=== PATIENT | male | born 1955 | race Caucasian/White ===

== ENCOUNTER → 2018-09-21 | Outpatient (CLI) | payer OTHER ==
[2018-09-21 11:41] LABS: HCT 55.8 % (39.0-53.0); HGB 18.2 gm/dL (13.0-17.5); MCH 31.5 pg (25.0-35.0); MCHC 32.7 g/dL (31.0-37.0); MCV 96.3 fL (80.0-100.0); Mean Platelet Volume 7.2; Platelet Count 205 k/uL (150-450); RDW 13.6 % (11.5-15.5); WBC 12.1 k/uL (3.8-10.6)
[2018-09-21 16:41] LABS: Anion Gap 7.6 mmol/L (4.00-12.00); Carbon Dioxide 29.4 mmol/L (21.6-31.8); Potassium 4.9 mmol/L (3.5-5.5)
== END | disposition home or self-care (01) ==
LOC: LABWHC1 09:52
PROVIDERS: ATTEND Internal Medicine Cardiovascular Disease
DX: E03.9 Hypothyroidism, unspecified (principal); I48.1 Persistent atrial fibrillation
CPT/HCPCS: 36415; 80051; 82565; 84443; 84520; 85027

== ENCOUNTER → 2018-10-01 | Outpatient (CLI) | payer OTHER | END | disposition home or self-care (01) | LOC: LABWHC1 15:43 | PROVIDERS: ATTEND Orthopaedic Surgery | DX: Z01.812 Encounter for preprocedural laboratory examination (principal) | CPT/HCPCS: 87070 ==

== ENCOUNTER 2018-10-02 12:45 | Day surgery (SDC) | payer OTHER ==
--- NOTE | 2018-10-01 12:34 | HP ---
HISTORY AND PHYSICAL CHIEF COMPLAINT: Right knee pain. 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 He notes locking and giving way. He has been unable to work because of pain. He is currently using a walker. PAST MEDICAL HISTORY: Significant for arthritis and heart disease. PAST SURGICAL HISTORY: Significant for previous shoulder surgery. CURRENT MEDICATIONS: 1. Aleve. 2. Prilosec. 3. Eliquis. FAMILY HISTORY: Significant for cancer. SOCIAL HISTORY: Negative for current tobacco or alcohol use. REVIEW OF SYSTEMS: A 16-point review of systems otherwise reviewed and is noncontributory. PHYSICAL EXAMINATION: On examination, the patient is approximately 5 foot 6, 230 pounds of endomorphic habitus. HEENT exam is nonfocal. Neck is supple. He has painless passive motion of the right hip. Straight leg raise is negative. Active motion right knee -15 to 100 degrees of flexion. He has a mild effusion. He is tender about the medial joint line. Collaterals are stable, Ina is negative, Misael's is equivocal. He has genu varum alignment. His distal neurovascular appears intact in the right lower extremity. Previous x-rays of the right knee obtained in the office show severe medial and patellofemoral compartment narrowing. IMPRESSION: 1. Right knee severe medial and patellofemoral compartment osteoarthrosis. 2. New onset atrial fibrillation. RECOMMENDATIONS: I talked to the patient at length regarding his condition and treatment options. At this point, he is quite limited because of pain related to his osteoarthrosis. After thorough discussion, he opts to proceed with surgery. We will plan to proceed with right total knee arthroplasty. We will likely reinstitute his Eliquis postoperatively. He underwent preoperative cardiac evaluation by Dr. Do. MMODL / IJN: [id number] /
[~2018-10-02 12:45] MED LIST: ACETAMINOPHEN TAB 500 MG TAB PO ONE; DEXAMETHASONE SOD PHOSPHATE 10 MG/ML 1 ML VIAL IV ONE; HYDROmorphone 0.5 MG/0.5 ML SYRINGE IVP PRN; LIDOCAINE 1% 20 ML VIAL (10MG/ML) FOR IV START INTRADERMA PRN; MELOXICAM 7.5 MG TAB PO ONE; MIDAZOLAM 2 MG/2 ML VIAL IV PRN; ONDANSETRON 4 MG/2 ML VIAL IVP ONE; SCOPOLAMINE 1.5MG/72HR PATCH TRANSDERM ONE; TRANEXAMIC ACID 1,000 MG in SODIUM CHLORIDE 0.9% 100 ML IVPB ONE; ceFAZolin IN SWFI 2 GM/20 ML SYRINGE IVP ONE
[2018-10-02] MEDS: LACTATED RINGERS 1,000 ML IV SCH (13:54)
[2018-10-02] MEDS ORDERED: ROPIVACAINE 246.25 MG, EPINEPHrine 0.5 MG, KETOROLAC 30 MG, WATER FOR INJECTION,STERILE... MISCELLANE ONE ×4 (15:03)
[2018-10-02] MEDS ORDERED: LABETALOL 5 MG/ML VIAL MDV ONE (15:59)
[2018-10-02] MEDS ORDERED: TRANEXAMIC ACID 1,000 MG/10 ML VIAL ONE (15:59)
[2018-10-02] MEDS ORDERED: MIDAZOLAM 2 MG/2 ML VIAL ONE (15:59)
[2018-10-02] MEDS ORDERED: HYDROmorphone (PF) 1 MG/ML ONE (15:59)
[2018-10-02] MEDS ORDERED: SUCCINYLCHOLINE CHLORIDE 100 MG/5 ML SYR IV ONE (15:59)
[2018-10-02] MEDS ORDERED: fentaNYL (PF) 50 MCG/ML 2 ML AMP ONE (15:59)
[2018-10-02] MEDS ORDERED: PROPOFOL 10 MG/ML 20 ML VIAL IV ONE (15:59)
[2018-10-02] MEDS ORDERED: SODIUM CHLORIDE 0.9% 100 ML BAG ONE (15:59)
[2018-10-02] MEDS ORDERED: LIDOCAINE 1% INJ 10MG/ML (20 ML MDV) ONE (15:59)
[2018-10-02] MEDS ORDERED: NALOXONE 0.4 MG/ML 1 ML VIAL IV PRN (16:02)
[2018-10-02] MEDS ORDERED: traMADol 50 MG TAB PO PRN (16:02)
[2018-10-02] MEDS ORDERED: HYDROcodone/APAP 7.5-325MG 1 EACH TAB PO PRN ×2 (16:02→16:04)
[2018-10-02] MEDS ORDERED: MAGNESIUM HYDROXIDE 2,400 MG/10 ML CUP PO PRN (16:02)
[2018-10-02] MEDS ORDERED: HYDROmorphone 0.5 MG/0.5 ML SYRINGE IVP PRN (16:02)
[2018-10-02] MEDS ORDERED: ONDANSETRON 4 MG/2 ML VIAL IVP PRN (16:02)
[2018-10-02] MEDS ORDERED: ACETAMINOPHEN TAB 325 MG TAB PO PRN (16:02)
[2018-10-02] MEDS ORDERED: ceFAZolin 3,000 MG in SODIUM CHLORIDE 0.9% IRRIGATIO 3,000 ML IRRIGATION ONE (16:35)
[2018-10-02] MEDS ORDERED: LACTATED RINGERS 1,000 ML IV ONE (16:51)
--- NOTE | 2018-10-02 18:03 | P.OP ---
Date of Procedure: 10/02/18 Preoperative Diagnosis: Right knee severe tricompartmental osteoarthrosis Postoperative Diagnosis: Same Procedure(s) Performed: Right total knee arthroplastycementedcruciate retaining Implants: Depuy Attune size 7 cemented femoral component, size 6 cemented tibial component, 10 mm articular surface, 38 mm cemented patellar component. This is a cruciate retaining implant. Anesthesia: GETA, local Surgeon: Napoleon Bunch [employer]1: Jason Richey Estimated Blood Loss (ml): 50 Pathology: other (Bone fragments) Condition: stable Disposition: PACU Indications for Procedure: The patient's a 62-year-old male who presents with progressive right knee pain secondary to osteoarthrosis despite conservative measures. A discussion of the risks and benefits of continued conservative measures versus operative intervention was made with patient. He opted to proceed with surgery. Operative risks to include infection, neurovascular injury, development of blood clots, possible fracture, possible component loosening, possible component failure need for subsequent procedures was discussed. Informed consent was obtained. Operative Findings: As below Description of Procedure: The patient was brought to the operating room, and after induction of general anesthesia the right lower extremity was prepped and draped in a normal fashion. The tourniquet was inflated to 270 mmHg. A longitudinal incision extending 3 finger breaths above the superior pole of the patella extending to the medial aspect the tibial tubercle was then made. The skin and subcutaneous tissues were divided sharply. Electrocautery was used for hemostasis. A medial parapatellar arthrotomy was then performed. The medial soft tissues to include the superficial and deep portions of the medial collateral ligament as well as the medial hamstring tendons were elevated subperiosteally. The proximal medial tibia osteophytes were carefully removed. The patella was everted. The knee was flexed. A portion of the retropatellar fat pad was excised sharply. The anterior cruciate ligament was sacrificed. A starting hole was made in the distal femur 1 cm anterior to the posterior cruciate origin. An intramedullary femoral guide was gently inserted planning on 5 valgus distal cut with 9 mm distal resection. The cutting block was pinned in place. The distal cut was then made. The posterior referencing sizing guide was utilized. 3 of external rotation was built into the system and verified off the trans- epicondylar axis and the posterior condyles. I felt size 7 was most appropriate. The cutting block was pinned in place. The anterior, posterior, and chamfer cuts were then made. The bone fragments were removed. A sulcus cut was then made with the appropriate guide. The trial size 7 femoral component was then placed and was fully seated. There was good anterior to posterior and medial to lateral fit. The distal peg holes were then drilled. The trial component was then removed. Attention was then paid towards preparing the proximal tibia. An extra medullary guide was utilized in line with the tibial shaft and second metatarsal distally. A 7 posterior slope was planned. I planned on 2 mm resection from the medial compartment. The cutting block was pinned in place. The proximal tibial cut was then made. The bone was removed in one fragment. The remnants of the medial and lateral menisci were excised the capsule junction with electrocautery. The tibia sized most appropriately at size 6. The posterior osteophytes off the distal femur were carefully removed with a curved osteotome. The trial tibial and femoral components were placed along with a 10 millimeters articular surface. I was able to obtain full flexion and extension with good stability with varus and valgus stress. After several flexion and extension cycles, the tibial rotation was marked with electrocautery in line with the medial one third of the tibial tubercle. At tention was then paid towards preparing the patella. A patella reamer was utilized taking this down to 14 mm of bone stock. A good flush cut was made. The patella sized most appropriately at 38 millimeters. The peg holes were then drilled. The trial component was placed. The knee was taken through a range of motion. I had good patellofemoral tracking with no hands technique. The trial components were then removed. The tibia was prepared in the appropriate rotation with appropriate drill and keel punch. The flexion and extension gaps were checked and felt to be symmetric. The posterior soft tissues were injected with ropivacaine. The bony surfaces were prepared with pulsatile lavage and dried. The deep tibial component was then cemented in place and was fully seated. Excess cement was removed. The femoral component was cemented in place and was fully seated. Again excess cement was removed. The trial 10 millimeters surface was then inserted in the knee was put in full extension. The patella component was cemented in place. After the cement had sufficiently hardened, the knee was again taken through a range of motion. Again there was good stability in flexion and extension with varus and valgus stress. The trial articular surface was then removed. The final articular surface was placed and was impacted. Care was taken to avoid any soft tissue interposition. Pulsatile lavage was again utilized. The tourniquet was deflated with approximately and the minutes total tourniquet time. There was minimal drainage therefore a deep drain was not placed. The medial parapatellar arthrotomy was then closed with #2 Ethibond suture. The subcutaneous tissues were reapproximated interrupted 2- 0 Vicryl sutures. The skin was reapproximated with 3-0 subarticular strata fix suture. Skin tape and adhesive was applied. A sterile dressing was applied. The patient was then awoken from sedation and transferred to recovery room in good condition. Blood loss was estimated at 50 milliliters. No complications were incurred. Sponge and needle counts were correct at the end the case. Michael VENEGAS assisted during the major components this case to include exposure, bone resection, and implantation.
--- NOTE | 2018-10-02 18:25 | XR ---
EXAMINATION TYPE: XR knee limited RT DATE OF EXAM: 10/02/2018 COMPARISON: NONE HISTORY: Postop knee surgery TECHNIQUE: 2 views FINDINGS: There is a right knee prosthesis. Components appear in anatomic position. IMPRESSION: No complicating process seen.
[2018-10-02 20:02] VITALS: BMI 38.5
[2018-10-02] MEDS ORDERED: SENNOSIDES-DOCUSATE SODIUM 1 EACH TAB PO SCH (21:00)
[2018-10-03] MEDS: ceFAZolin IN SWFI 2 GM/20 ML SYRINGE IVP SCH ×2 (02:11→09:01)
[2018-10-03] MEDS: LACTATED RINGERS 1,000 ML IV SCH (05:17)
[2018-10-03 07:25] LABS: Basophils % (A) 0 %; Eosinophils # (A) 0.2 k/uL (0-0.7); Eosinophils % (A) 1 %; HCT 49.9 % (39.0-53.0); Lymphocytes % (A) 5 %; MCH 30.5 pg (25.0-35.0); MCHC 32.1 g/dL (31.0-37.0); MCV 94.9 fL (80.0-100.0); Mean Platelet Volume 7.1; Monocytes # (A) 0.9 k/uL (0-1.0); Monocytes % (A) 4 %; Neutrophils # (A) 17.7 k/uL (1.3-7.7); Neutrophils % (A) 89 %; Platelet Count 194 k/uL (150-450); RBC 5.25 m/uL (4.30-5.90); RDW 13.4 % (11.5-15.5); WBC 19.9 k/uL (3.8-10.6)
[2018-10-03] MEDS ORDERED: APIXABAN 5 MG TAB PO SCH (08:00)
[2018-10-03 08:46] VITALS: RESP 12
--- NOTE | 2018-10-03 12:02 | P.PN ---
Subjective Progress Note Date: 10/03/18 Principal diagnosis: Status post right total knee arthroplasty Patient evaluated at bedside, he is doing very well. His pain is well- controlled. He reasonably well with therapy. Denies any chest pain or shortness of breath Objective - Vital Signs Vital signs: Vital Signs Temp 98.1 F 10/03/18 07:00 Pulse 97 10/03/18 07:00 Resp 12 10/03/18 09:08 BP 118/81 10/03/18 07:00 Pulse Ox 97 10/03/18 09:12 Intake & Output 10/02/18 10/03/18 10/03/18 18:59 06:59 18:59 Intake Total 1351 100 Output Total 50 550 Balance 1301 -550 100 Intake: IV 1351 Oral 100 Output: Urine 550 Estimated Blood Loss 50 Other: Voiding Method Urinal # Voids 0 - Exam Right lower extremity: Incision is clean, dry, and intact. The exofin fusion tape is in good condition. There is minimal soft tissue swelling and ecchymosis surrounding the medial and lateral aspects of the incision. Calf is soft, no tenderness with palpation. Plantar flexion, dorsiflexion, EHL, FHL are intact. Sensory exam to light touch throughout the extremity is intact, dorsal pedis pulses 2+. - Labs CBC & Chem 7: 10/03/18 07:11 Labs: Abnormal Lab Results - Last 24 Hours (Table) 10/03/18 Range/Units 07:11 WBC 19.9 H (3.8-10.6) k/uL Neutrophils # 17.7 H (1.3-7.7) k/uL Assessment and Plan Plan: Assessment: Postoperative 1 status post right total knee arthroplasty Plan: Pain control, plan for discharge on [place] 7.5 mg/325 mg GI and DVT prophylaxis, resume home dose of anticoagulant Medical recommendations Discharge instructions discussed Home nursing facility after discharge Discharge planning: Plan for discharge home today Time with Patient: Less than 30
--- NOTE | 2018-10-03 12:04 | P.DS ---
Providers Date of admission: 10/02/2018 Expected date of discharge: 10/03/18 Attending physician: Napoleon Bunch Consults: 10/02/18 16:05 Consult Physician Routine Consulting Provider: Sadaf Lopez Consult Reason/Comments: Medical Management Do you want consulting provider notified?: Yes Primary care physician: Sadaf Lopez Hospital Course: Date of admission: 10/02/2018 Date of discharge: 10/03/2018 Admission diagnosis: Status post right total knee arthroplasty Discharge diagnosis: Same Attending physician: Dr. Bunch Surgical procedures: Right total knee arthroplasty Brief history: Patient is a 62-year-old male with a history of regressive primary right knee osteoarthritis. At this point patient has failed conservative treatment measures and has opted to proceed with a elective right total knee arthroplasty. Hospital course: Details of patient's surgery can be found in operative report. Patient tolerated the procedure well and was subsequently transported to orthopedic floor. Patient's orthopeidc and medical care was provided daily. Patient had daily laboratory tests performed for evaluation of overall blood counts. Patient had daily physical therapy to include strengthening range of motion as well as education with walker ambulation. Patient had daily CPM usage as part of their physical therapy program. Patient was treated with Eliquis for their postoperative DVT prophylaxis during their inpatient stay. Patient was noted to have a relatively uneventful postoperative course. Patient reported satisfactory pain control with oral pain medications by postoperative day 0. Patient showed satisfactory progress with physical therapy. Patient moved steadily through the program and had no difficulty meeting the goals by postoperative day 1. Given patient's otherwise satisfactory course and having met physical therapy goals, plan is to discharge patient home on postoperative day 1. Discharge condition/disposition: Patient will be discharged home in stable condition. Discharge medications: Instructions are given on resumption of patient's normal daily medications per primary care recommendation, in addition patient will be prescribed [place] 7.5 mg/325 mg, Colace 100mg. Discharge instructions: 1. Wound care and infection precautions, keep incision dry and covered while showering, no lotions, creams, moisturizers. No soaking, tubs, pools, hottubs. Do not scrub over the incision. 2. Weight-bear as tolerated with walker / cane until follow-up. 3. Ice and elevate when necessary. Do not exceed 20 minutes per hour with ice pack. 4. Utilize compression sleeve until seen at first follow up appointment. 5. Visiting nursing care. 6. Home physical therapy including home CPM. 7. Pain meds and anticoagulants per prescription. 8. Pain medication has potential to cause constipation. Increase oral fluid and fiber intake. Contact primary care provider if you have not had a bowel movement within 48 hours after discharge 9. No anti-inflammatory medication until discussed at first post operative visit, this including Motrin, Aleve, Mobic, Diclofenac. 10. Follow up in office at 2 weeks postop with Michael Richey PA-C 11. Follow up with your primary care doctor 7-10 days after discharge. 12. Contact [facility] with any questions, . Procedures: Right total knee arthroplasty Patient Condition at Discharge: Good Plan - Discharge Summary Discharge Rx Participant: Yes New Discharge Prescriptions: New Docusate [Colace] 100 mg PO DAILY #30 capsule HYDROcodone/APAP 7.5-325MG [[place] 7.5] 1 - 2 each PO Q6HR PRN #40 tab PRN Reason: Pain No Action Metoprolol Tartrate [Lopressor] 50 mg PO QAM Apixaban [Eliquis] 5 mg PO BID Esomeprazole Magnesium [NexIUM] 20 mg PO DAILY PRN PRN Reason: Heartburn Discharge Medication List Apixaban [Eliquis] 5 mg PO BID 10/01/18 [History] Esomeprazole Magnesium [NexIUM] 20 mg PO DAILY PRN 10/01/18 [History] Metoprolol Tartrate [Lopressor] 50 mg PO QAM 10/01/18 [History] Docusate [Colace] 100 mg PO DAILY #30 capsule 10/03/18 [Rx] HYDROcodone/APAP 7.5-325MG [[place] 7.5] 1 - 2 each PO Q6HR PRN #40 tab 10/03/18 [Rx] Follow up Appointment(s)/Referral(s): [facility], [NON-STAFF] - Jason Richey PAC [PHYSICIAN STEP DOWN SPECIALIST] - 2 Weeks Dagmar Hollingsworth [NON-STAFF] - Activity/Diet/Wound Care/Special Instructions: Orthopedic Discharge Instructions: 1. Wound care and infection precautions, keep incision dry and covered while showering, no lotions, creams, moisturizers. No soaking, pools, hot tubs. Do not scrub over incision. 2. Weight-bear as tolerated with walker / cane until follow-up. 3. Ice and elevate when necessary. Do not exceed 20 minutes per hour with ice pack. 4. Utilize compression sleeve until seen at first follow up appointment. 5. Pain meds and anticoagulants per prescription. 6. Pain medication has potential to cause constipation. Increase oral fluid and fiber intake. Contact primary care provider if you have not had a bowel movement within 48 hours after discharge. 7. No anti-inflammatory medication until discussed at first post operative visit, this including Motrin, Aleve, Mobic, Diclofenac. 8. Follow up in office at 2 weeks postop with Michael Richey PA-C 9. Follow up with your primary care doctor 7-10 days after discharge. 10. Contact [facility] with any questions, [phone]. 11. Please call [employer] once home to arrange delivery of continuous passive motion (CPM) machine - [phone] Discharge Disposition: HOME WITH HOME HEALTH SERVICES
[2018-10-03] MEDS ORDERED: PANTOPRAZOLE 40 MG TABLET PO PRN (13:39)
[2018-10-03 15:54] VITALS: BP 125/69; PULSE 68; TEMP 98
[2018-10-04] MEDS ORDERED: METOPROLOL TARTRATE 50 MG TAB PO SCH (09:00)
--- NOTE | 2018-10-04 09:48 | CONS ---
CONSULTATION REASON FOR CONSULTATION: Advice regarding hypertension and other multiple medical issues requested by Dr. Bunch. HISTORY OF PRESENT ILLNESS: This 62-year-old gentleman with a past medical history of atrial fibrillation, GERD, hypertension, history of DJD being followed by primary physician in the outpatient setting, was admitted after right total knee arthroplasty. There is no history of chest pain. No history of palpitations. No history of headache, loss of consciousness, seizures, nausea and vomiting, diarrhea, fever, rigors or chills at this time. PAST MEDICAL HISTORY: History of atrial ablation, GERD, hypertension, history of DJD, history of appendectomy. MEDICATIONS: Home medications are: 1. Lopressor 50 mg q.a.m. 2. Nexium 40 mg daily. 3. [place] 7.5. 4. Colace 100 mg daily. ALLERGIES: None. FAMILY HISTORY: History of cancer in the family. SOCIAL HISTORY: No history of smoking. No history of alcohol. REVIEW OF SYSTEMS: ENT: No diminished vision. No diminished hearing. CARDIOVASCULAR: No angina. RESPIRATORY: No cough or hemoptysis. GI no nausea or vomiting. no dysuria. NERVOUS SYSTEM: No numbness or weakness. ALLERGY/IMMUNOLOGY: No asthma, hayfever. MUSCULOSKELETAL: As mentioned earlier. HEMATOLOGY/ONCOLOGY: No history of anemia. ENDOCRINE: No history of diabetes or hypothyroidism. CONSTITUTIONAL: As mentioned earlier. DERMATOLOGY: Negative. RHEUMATOLOGY: Negative. PSYCHIATRY: As mentioned earlier. PHYSICAL EXAMINATION: GENERAL: Alert and oriented x3. VITAL SIGNS: Pulse 68. Blood pressure 125/60, respiration 12, temperature 98 degrees, pulse ox 98% on room air. HEENT: Conjunctivae normal. Oral mucosa moist. NECK is no jugular venous distention. No carotid bruit. No lymph node enlargement. CARDIOVASCULAR SYSTEM: S1, S2 muffled. RESPIRATORY: Breath sounds diminished in the bases. No rhonchi. No crackles. ABDOMEN: Soft, nontender. LEGS: Status post arthroplasty. NERVOUS SYSTEM: Higher functions as mentioned earlier. Moves all four extremities. No focal motor or sensory deficits. LYMPHATICS: No lymph nodes palpable in the neck, axillae or groin. SKIN: No ulcer, rash or bleeding. JOINTS: No active deforming arthropathy. LABS: WBC 19.8, hemoglobin 16. ASSESSMENT: 1. Status post right total knee joint arthroplasty. 2. Increased WBC. 3. History atrial fibrillation. 4. History of gastroesophageal reflux disease. 5. Hypertension. 6. History of degenerative joint disease. 7. History of appendectomy. 8. FULL CODE: RECOMMENDATIONS AND DISCUSSION: In this 62-year-old gentleman who presented with multiple complex medical issues, we will monitor the patient closely, continue the current medications, management and symptomatic treatment. Otherwise, at this time, I recommend resume the home medications. DVT prophylaxis. Otherwise, I would recommend closely follow with the primary physician in the outpatient setting after discharge. We will follow the patient closely with you. Incentive spirometer. Thank you, Dr. Bunch for letting us participate in the care of this patient. MMODL / IJN: [id number] /
== END 2018-10-03 16:05 | disposition home health service (06) ==
LOC: OR 12:45 → 4SSUR 18:08 → OR 10-03 16:05
PROVIDERS: ATTEND Orthopaedic Surgery
DX: M17.11 Unilateral primary osteoarthritis, right knee (principal); M25.761 Osteophyte, right knee; I48.1 Persistent atrial fibrillation; K21.9 Gastro-esophageal reflux disease without esophagitis; I11.9 Hypertensive heart disease without heart failure; E78.5 Hyperlipidemia, unspecified; Z79.01 Long term (current) use of anticoagulants; Z79.899 Other long term (current) drug therapy; Z79.1 Long term (current) use of non-steroidal anti-inflammatories (NSAID); Z88.6 Allergy status to analgesic agent
CPT/HCPCS: 97116; 97161; 85025; 88300; 73560; 27447; C1713; C1776; J2250; J0171; J1100; J2405; J0690 ×3; J2001; J3010; J1885; J1170; J2795; J0330; J2704

== ENCOUNTER 2019-11-12 21:52 | Emergency (ER) | payer OTHER ==
[2019-11-12 21:57] VITALS: TEMP 97.9
[2019-11-12 22:18] VITALS: PULSE 92
[2019-11-12 22:30] LABS: Basophils # (A) 0.1 k/uL (0-0.2); Basophils % (A) 1 %; Eosinophils # (A) 0.4 k/uL (0-0.7); Eosinophils % (A) 4 %; HCT 53.3 % (39.0-53.0); HGB 17.2 gm/dL (13.0-17.5); Lymphocytes # (A) 2.5 k/uL (1.0-4.8); Lymphocytes % (A) 24 %; MCH 30.9 pg (25.0-35.0); MCHC 32.3 g/dL (31.0-37.0); MCV 95.7 fL (80.0-100.0); Mean Platelet Volume 7.6; Monocytes # (A) 0.6 k/uL (0-1.0); Monocytes % (A) 6 %; Neutrophils # (A) 6.6 k/uL (1.3-7.7); Neutrophils % (A) 64 %; Platelet Count 188 k/uL (150-450); RBC 5.57 m/uL (4.30-5.90); RDW 13.1 % (11.5-15.5); WBC 10.3 k/uL (3.8-10.6)
--- NOTE | 2019-11-12 22:34 | ED ---
Chest Pain HPI - General Chief Complaint: Chest Pain Stated Complaint: Chest Pain SOB Time Seen by Provider: 11/12/19 22:17 Source: patient Mode of arrival: ambulatory Limitations: no limitations - History of Present Illness Initial Comments: Patient is a 64-year-old male past history of A. fib on [place] who presents to the emergency department with reported chest pain. He states the pain started last night. He went to work and was required to wear a mask all day. States it made him feel short of breath and lightheaded. He also had some pressure in his chest. States that it is mildly present at this time and graded as a 3 out of 10. Patient denies previous history of coronary disease. Sees Dr. Cardona in office and had a stress test last which was negative. Patient is very reluctant to be here however states he was forced by his was at bedside. He denies ripping or tearing sensation to his back. No cough or hemoptysis. Denies history of previous pulmonary issues. There are no other alleviating, Perceptin or modifying factors - Related Data Home Medications Medication Instructions Recorded Confirmed Apixaban [Eliquis] 5 mg PO BID@0200,1400 10/01/18 11/12/19 Esomeprazole Magnesium [NexIUM] 20 mg PO DAILY PRN 10/01/18 11/12/19 Metoprolol Tartrate [Lopressor] 50 mg PO BID@0200,1400 10/01/18 11/12/19 Allergies Allergy/AdvReac Type Severity Reaction Status Date / Time aspirin AdvReac Nausea & Verified 11/12/19 23:09 Vomiting Review of Systems ROS Statement: Those systems with pertinent positive or pertinent negative responses have been documented in the HPI. ROS Other: All systems not noted in ROS Statement are negative. EKG Findings - EKG Comments: EKG Findings:: EKG demonstrates A. fib with a rate of 92. DE interval is 0 QRS 92. QTC of 460. No acute ST segment elevations. Mild depression in V5 and V6 Past Medical History Past Medical History: Atrial Fibrillation, GERD/Reflux, Hypertension, Osteoarthritis (OA) History of Any Multi-Drug Resistant Organisms: None Reported Past Surgical History: No Surgical Hx Reported Past Psychological History: No Psychological Hx Reported Smoking Status: Never smoker Past Alcohol Use History: None Reported Past Drug Use History: None Reported General Exam Limitations: no limitations Course Vital Signs 11/12/19 11/12/19 11/13/19 21:54 22:14 00:05 Temperature 97.9 F Pulse Rate 95 92 92 Respiratory 20 19 20 Rate Blood Pressure 154/88 117/74 O2 Sat by Pulse 99 98 Oximetry Chest Pain MDM - MDM Upon arrival the patient was placed into room 6. A thorough history and physical exam is performed. EKG does demonstrate A. fib. Patient is currently anticoagulated. He did request laboratory studies and a chest x-ray for to the patient does comply 2. Upon return results I discussed with the patient. I did recommend hospital admission however the patient is adamant that he goes home at this time. He is made aware of the risks of leaving without full cardiac evaluation which included permanent disability and . is at bedside. Patient continues to request to leave. He must follow-up with his primary care doctor within 1-2 days. 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 Return to the emergency department should he agreed hospital admission or have any new or worsening symptoms. Patient agreed to this and he was discharged home Disposition Clinical Impression: Chest pain Disposition: HOME SELF-CARE Condition: Stable Instructions (If sedation given, give patient instructions): Chest Pain (ED) Additional Instructions: I recommended hospital admission. Return to the emergency room for any new or worsening symptoms. See your doctor within 1-2 days Is patient prescribed a controlled substance at d/c from ED?: No Referrals: Sadaf Lopez DO [Primary Care Provider] - 1-2 days Yasir Do MD [STAFF PHYSICIAN] - 1-2 days Time of Disposition: 23:51
[2019-11-12 22:38] LABS: Partial Thromboplastin Time 24.8 sec (22.0-30.0); Prothrombin Time 10.6 sec (9.0-12.0)
[2019-11-12 22:41] LABS: ALT 18 U/L (4-49); AST 28 U/L (17-59); African American GFR (CKD) >90 (>60 ml/min/1.73 sqM); Albumin 4.3 g/dL (3.5-5.0); Alkaline Phosphatase 87 U/L (38-126); Anion Gap 8 mmol/L; Blood Urea Nitrogen 12 mg/dL (9-20); Calcium 9.4 mg/dL (8.4-10.2); Carbon Dioxide 26 mmol/L (22-30); Chloride 104 mmol/L (98-107); Glucose 116 mg/dL (74-99); Non-African American GFR(CKD) >90 (>60 ml/min/1.73 sqM); Potassium 4.3 mmol/L (3.5-5.1); Sodium 138 mmol/L (137-145); Total Bilirubin 0.8 mg/dL (0.2-1.3); Total Protein 7.8 g/dL (6.3-8.2)
--- NOTE | 2019-11-12 22:55 | XR ---
EXAMINATION TYPE: XR chest 2V DATE OF EXAM: 11/12/2019 COMPARISON: NONE HISTORY: Chest pain TECHNIQUE: FINDINGS: Heart and mediastinum are normal. Lungs are clear. Diaphragm is normal. There is left-sided nipple shadow. There are chest leads. Bony thorax is intact. IMPRESSION: No active cardiopulmonary disease. Normal heart.
[2019-11-13 00:13] VITALS: BP 117/74; RESP 20
== END 2019-11-13 00:13 | disposition home or self-care (01) ==
LOC: EC 21:52
DX: R07.9 Chest pain, unspecified (principal); I48.91 Unspecified atrial fibrillation; K21.9 Gastro-esophageal reflux disease without esophagitis; I10 Essential (primary) hypertension; Z79.01 Long term (current) use of anticoagulants; Z79.899 Other long term (current) drug therapy; Z88.6 Allergy status to analgesic agent
CPT/HCPCS: 36415; 71046; 80053; 83690; 83735; 83880; 84484; 85025; 85610; 85730; 93005; 99285

== ENCOUNTER → 2019-11-29 | Outpatient (CLI) | payer OTHER ==
--- NOTE | 2019-11-29 09:52 | CT ---
EXAMINATION TYPE: CT brain wo con DATE OF EXAM: 11/29/2019 COMPARISON: None HISTORY: disorientation CT DLP: [address] of the brain was performed. The ventricles, basal cisterns and sulci overlying the cerebral convexities demonstrate mild enlargem ent. There is no evidence for intracranial hemorrhage or sulcal effacement. There is decreased attenuation about the periventricular white matter and deep white matter of both c erebral hemispheres, compatible with chronic small vessel ischemia. Differential diagnosis does inclu de demyelination. No mass effects are seen.No midline shift. Osseous calvarium is intact. If symptoms persist consider MRI. IMPRESSION: 1. Age related atrophic and chronic small vessel ischemic change without acute intracranial process s een at this time.
== END | disposition home or self-care (01) ==
LOC: RADCTMAIN 09:16
PROVIDERS: ATTEND Family Medicine
DX: I67.82 Cerebral ischemia (principal); G31.9 Degenerative disease of nervous system, unspecified
CPT/HCPCS: 70450